=== PATIENT | male | born 1965 | race Caucasian/White ===

== ENCOUNTER 2021-04-28 13:13 | Emergency (ER) | payer BC, SELFPAY ==
[2021-04-28 13:25] VITALS: BP 113/83; PULSE 84; RESP 16; TEMP 37.3; O2SAT 99
--- NOTE | 2021-04-28 14:00 | ED.GENADULT ---
HPI - General Adult General Chief complaint: Extremity Injury, Upper Stated complaint: INSECT BITE/WRIST PAIN Time Seen by Provider: 04/28/21 14:00 Source: patient and RN notes reviewed Mode of arrival: ambulatory Limitations: no limitations History of Present Illness HPI narrative: 55-year-old male presents with complaints of redness, warmth, tenderness, and swelling to the right upper shoulder for the past 7 days. ?Be reports possible insect bite areas with increasing itching, drainage, redness, swelling, and tenderness over the past 2-3 days. No treatment. ?Denies radiation of tenderness, redness, or swelling. ?No exacerbating factors. ?Denies fever or chills. ?Denies nausea, vomiting, and abdominal pain. ?Tolerating po intake well. ?Remains active. ?The patient reports he has not been diagnosed with COVID-19. ?Patient reports he received 2 [employer] COVID-19 vaccines. ?The patient reports he is not waiting for the results of a COVID-19 lab test. ?The patient reports he does not have weakness or fatigue. The patient reports he does not have a new or worsening cough or shortness of breath. Denies chest pain. ?The patient reports he does not have any rhinorrhea, congestion, loss of taste or smell, sore throat, and diarrhea. ?Denies recent traveling. ?Denies concerns for COVID-19 or exposures. At this time, the patient is not suspected of having COVID-19. Complaints of right wrist pain for the past 60 days. ?Ibuprofen and ice with some relief. Symptoms worsen after constant usage of the right hand. ?No numbness or tingling. ?No radiating pain. ?No swelling. ?No immobility, suspected foreign body, or abuse. ?Exacerbating factors consist of movement. ?The relieving factor is rest. ?The dominant hand is the Right hand. Some parts of this dictation were generated by voice recognition software and may contain typographical and/or grammatical inaccuracies. Related Data Home Medications Medication Instructions Recorded Confirmed olmesartan [Benicar] 40 mg PO DAILY 04/28/21 04/28/21 paroxetine HCl 20 mg PO DAILY 04/28/21 04/28/21 tadalafil 20 mg PO USEASDIRECTD PRN 04/28/21 04/28/21 Allergies Allergy/AdvReac Type Severity Reaction Status Date / Time No Known Allergies Verified 04/28/21 13:24 Review of Systems Review of Systems: Narrative: CONSTITUTIONAL: Denies fever, chills, sweats. EYES: Denies visual changes, redness, discharge. ENT: Denies rhinorrhea, congestion, sore throat, otalgia. CARDIOVASCULAR: Denies chest pain, palpitations, edema. RESPIRATORY: Denies dyspnea, wheezing, cough. GASTROINTESTINAL: Denies abdominal pain, nausea, vomiting, diarrhea. SKIN: Complaints of redness, warmth, tenderness, and swelling to the right upper shoulder. MUSCULOSKELETAL: Denies acute back pain or myalgia. Complains of RT wrist pain. NEUROLOGIC: Denies numbness or focal weakness. PSYCHIATRIC: Denies anxiety or depression. All systems reviewed & are unremarkable except as noted in HPI and below. PENDING SALE TO [facility] Past Medical History Medical History (Updated 04/29/21 @ 00:34 by RADHA Reyes) Cigar smoker Hypertension Obstructive sleep apnea wear CPAP Ulcer Surgical History Surgical History (Updated 04/29/21 @ 00:34 by RADHA Reeys) History of cholecystectomy History of knee surgery bilateral History of shoulder surgery bilateral Family History Family History Mother Family history of gallbladder disease Father Cerebrovascular accident Family history of malignant neoplasm Other Hypertension Social History Social History (Updated 04/29/21 @ 00:41 by RADHA Reyes) Smoking status: Light tobacco smoker Tobacco type: cigars Second hand tobacco smoke exposure: No Alcohol intake: former Alcohol use details: Be reports quitting alcohol intake 6 months ago Substance use: current Substance use type: marijuana Living ar
== END 2021-04-28 14:25 | disposition home or self-care (01) ==
PROVIDERS: Emergency Provider Nurse Practitioner Family; PCP Emergency Medicine
DX: S40.261A Insect bite (nonvenomous) of right shoulder, initial encounter (principal); W57.XXXA Bitten or stung by nonvenomous insect and other nonvenomous arthropods, initial encounter; L03.113 Cellulitis of right upper limb; M77.8 Other enthesopathies, not elsewhere classified; F17.290 Nicotine dependence, other tobacco product, uncomplicated; I10 Essential (primary) hypertension; G47.33 Obstructive sleep apnea (adult) (pediatric)
CPT/HCPCS: 99213; G0463